=== PATIENT | female | born 1990 | race Caucasian/White ===

== ENCOUNTER 2022-05-01 09:37 | Emergency (ER) | payer BC, OTHER ==
[2022-05-01] MEDS ORDERED: HYDROmorphone 0.5 MG/0.5 ML Syringe IVPUSH ONE ×2 (10:41→14:46)
[2022-05-01] MEDS ORDERED: Famotidine 20 MG/2 ML SDV IVPUSH ONE (10:41)
[2022-05-01] MEDS ORDERED: Ondansetron 4 MG/2 ML SDV IVPUSH ONE (10:41)
[2022-05-01] MEDS ORDERED: Sodium Chloride 0.9% 10 ML Syringe FLUSH PRN (10:41)
[2022-05-01] MEDS ORDERED: Sodium Chloride 0.9% 1,000 ML IV SCH (10:45)
[2022-05-01 11:37] LABS: ESTIMATED GFR 87 mL/min (>60)
== END 2022-05-01 16:15 | disposition home or self-care (01) ==
LOC: JD.ED 09:37
DX: R10.10 Upper abdominal pain, unspecified (principal)
CPT/HCPCS: 36415; 76705; 80053; 83690; 84702; 85025; 86140; 96361; 96374; 96375; 96376; 99284; J1170; J2405; J3490; J7030; 99283

== ENCOUNTER 2022-10-28 07:49 | Day surgery (SDC) | payer OTHER ==
[2022-10-28] MEDS: Sodium Chloride 0.9% 10 ML Syringe FLUSH SCH ×2 (00:01→09:00)
[~2022-10-28 07:49] MED LIST: Bupivacaine 0.25%/EPINEPHrine 1:200,000 30 ML SDV ONE; Bupivacaine 0.5% 30 ML SDV ONE; Dexamethasone 4 MG/ML 5 ML MDV ONE; Ketorolac 30 MG/ML SDV ONE; Lidocaine 1% 5 ML VIAL ONE; Lidocaine 1%/Sod Bicarbonate in NS 8.4% 1 ML Syringe IDERM PRN; Midazolam 1 MG/ML 2 ML SDV ONE; Ondansetron 4 MG/2 ML SDV ONE; Propofol 200 MG/20 ML SDV ONE; Rocuronium 50 MG/5 ML Vial ONE; Sodium Chloride 0.9% 10 ML Syringe FLUSH PRN; ceFAZolin 2 GM Vial ONE; diphenhydrAMINE 50 MG/ML SDV ONE; fentaNYL 250 MCG/5 ML SDV ONE
[2022-10-28] MEDS: Lactated Ringers 1,000 ML IV SCH ×2 (08:20→12:50)
[2022-10-28] MEDS ORDERED: Scopolamine 1.5 MG Transdermal Patch TOP SCH (08:25)
[2022-10-28] MEDS ORDERED: Dexmedetomidine 200 MCG/2 ML SDV ONE (09:28)
[2022-10-28] MEDS ORDERED: Sodium Chloride 0.9% 100 ML ONE (09:28)
[2022-10-28] MEDS ORDERED: HYDROmorphone 0.5 MG/0.5 ML Syringe IVPUSH PRN (09:35)
[2022-10-28] MEDS ORDERED: Ondansetron 4 MG/2 ML SDV IVPUSH PRN ×2 (09:35→12:54)
[2022-10-28] MEDS ORDERED: fentaNYL 100 MCG/2 ML SDV IVPUSH PRN (09:35)
[2022-10-28] MEDS ORDERED: ePHEDrine 50 MG/ML SDV ONE (09:55)
[2022-10-28] MEDS ORDERED: Lactated Ringers 0 ML ONE (10:00)
[2022-10-28] MEDS ORDERED: Lactated Ringers 1,000 ML ONE (10:28)
[2022-10-28] MEDS: Acetaminophen/oxyCODONE 325-5 MG Tab PO PRN ×2 (15:13→20:00)
[2022-10-28] MEDS: Simethicone 80 MG Tab.Chew PO PRN ×2 (17:07→23:00)
[2022-10-28] MEDS: Ibuprofen 600 MG Tab PO PRN (22:57)
[2022-10-29] MEDS: Acetaminophen/oxyCODONE 325-5 MG Tab PO PRN ×2 (02:09→07:58)
[2022-10-29] MEDS: Sodium Chloride 0.9% 10 ML Syringe FLUSH SCH (06:16)
[2022-10-29] MEDS: Ibuprofen 600 MG Tab PO PRN (06:19)
[2022-10-29] MEDS: Simethicone 80 MG Tab.Chew PO PRN (07:58)
== END 2022-10-29 08:38 | disposition home or self-care (01) ==
LOC: JD.SDS 07:49 → JD.OB 16:08 → JD.SDS 10-29 08:38
PROVIDERS: ATTEND Obstetrics & Gynecology
DX: N72 Inflammatory disease of cervix uteri (principal); N80.03 Adenomyosis of the uterus; F41.9 Anxiety disorder, unspecified; F32.A Depression, unspecified; Z87.891 Personal history of nicotine dependence; Z88.1 Allergy status to other antibiotic agents
CPT/HCPCS: 36415; 58552; 81003; 81025; 85025; 86850; 86900; 86901; A9270; J0690; J1100; J1170; J1200; J1885; J2250; J2405; J2704; J3010; J3490; J7120; 00944